=== PATIENT | female | born 1990 | race Caucasian/White ===

== ENCOUNTER 2022-11-06 20:30 | Emergency (ER) | payer MEDICAID ==
[~2022-11-06] VITALS: Ht 162.6 cm; Wt 72.6 kg
--- NOTE | 2022-11-06 20:59 | NUR ---
Patient triaged, placed in ED room 3, Patient appears in no acute distress at this time. Report given to ROLAND Piedra. ER MD Bhatti made aware.
[2022-11-06 21:00] VITALS: BP_SYST 182
--- NOTE | 2022-11-06 21:00 | NUR ---
Patient presents to ED from home with c/o syncope x2 weeks ago; elevated BP, SOB upon walking, headache, and jaw pain x1day. Patient reports pain 5/10 at this time. Patient A/Ox4, VSS with exception of BP, resp even and unlabored. Nad noted at this time. ER MD Bhatti made aware.
--- NOTE | 2022-11-06 21:15 | NUR ---
First contact. Pt placed on monitor.
--- NOTE | 2022-11-06 21:16 | NUR ---
Pt admits to having shortness of breath, high blood pressure and a headache 5/10 as the reason for coming into the ER. Pt also states she passed out 2 weeks ago. She has an appointment with a editor city to f/u regarding her syncopal episode from 2 weeks ago.
[2022-11-06 22:40] LABS: BASOPHILS # (AUTO) 0.1 K/uL (0.0-0.2); BASOPHILS % (AUTO) 0.5 % (0.0-2.0); EOSINOPHILS # (AUTO) 0.1 K/uL (0.0-0.4); EOSINOPHILS % (AUTO) 0.8 % (0.0-4.0); LYMPHOCYTES # (AUTO) 4.2 K/uL (1.0-5.5); LYMPHOCYTES % (AUTO) 42.9 % (20.5-51.5); MEAN CORPUSCULAR HEMOGLOBIN 31 pg (27-31); MEAN CORPUSCULAR HGB CONC 33 % (32-36); MEAN CORPUSCULAR VOLUME 92 fL (79.0-98.0); MONOCYTES # (AUTO) 0.6 K/uL (0.0-1.0); MONOCYTES % (AUTO) 5.7 % (1.7-9.3); NEUTROPHILS # (AUTO) 4.9 K/uL (1.8-7.7); NEUTROPHILS % (AUTO) 50.1 % (40.0-70.0); PLATELET COUNT (AUTO) 364 K/uL (130-430); RED BLOOD CELL COUNT(AUTO) 4.57 MIL/uL (4.2-6.2); RED CELL DISTRIBUTION WIDTH 14.6 % (9.0-15.0); WHITE BLOOD COUNT (AUTO) 9.9 K/uL (4.8-10.8)
[2022-11-06] MEDS ORDERED: ACETAMINOPHEN 325 MG TABLET PO ONE (23:00)
[2022-11-06] MEDS ORDERED: IBUPROFEN 600 MG TABLET PO ONE (23:00)
[2022-11-06 23:28] LABS: ALANINE AMINOTRANSFERASE 36 U/L (12-78); ALBUMIN 3.5 g/dL (3.4-4.8); ANION GAP 13 (5-15); ASPARTATE AMINOTRANSFERASE 25 U/L (10-37); CALCIUM 8.8 mg/dL (8.4-11.0); CHLORIDE 103 mmol/L (98-107); CREATININE 0.84 mg/dL (0.55-1.30); GLUCOSE 92 mg/dL (70-99); TOTAL BILIRUBIN 0.3 mg/dL (0.0-1.0); UREA NITROGEN, BLOOD 15 mg/dL (8-21)
[2022-11-06 23:31] LABS: GFR AFRICAN AMERICAN 100 mL/min (>90)
[2022-11-07] MEDS ORDERED: iohexoL 350 mgI/mL, 100 ML INFUS..BTL IV ONE (01:08)
[2022-11-07 03:14] VITALS: BP_SYST 129
--- NOTE | 2022-11-07 03:25 | NUR ---
Patient given written and verbal discharge instructions and verbalizes understanding. ER MD discussed with patient the results and treatment provided. Patient in stable condition. ID arm band removed. IV catheter removed intact and dressing applied, no active bleeding. Patient educated on pain management and to follow up with PMD. Opportunity for questions provided and answered.
== END 2022-11-07 03:25 | disposition home or self-care (01) ==
LOC: SED 20:30
DX: R06.02 Shortness of breath (principal); R07.89 Other chest pain; R51.9 Headache, unspecified; R79.0 Abnormal level of blood mineral; I10 Essential (primary) hypertension; Z79.899 Other long term (current) drug therapy
CPT/HCPCS: 99285; 71045; 80053; 83880; 85025; 85379; 84484; 36415; 93005; 81025; 71275; 76376; Q9967

== ENCOUNTER 2023-01-05 17:36 | Inpatient (IN) | payer MEDICAID ==
[~2023-01-05] VITALS: Ht 167.6 cm; Wt 75.3 kg
--- NOTE | 2023-01-05 17:36 | NUR ---
PT PLACED IN HALLWAY BED, AWAITING ER BED AVAILABILITY
--- NOTE | 2023-01-05 17:36 | NUR ---
Kenyatta ludwig in [facility] - 01/05/23 at 1926 by PRAKASH BROUGHT BACK TO HALLWAY BED AND TRIAGED. REPORT GIVEN TO MICHAEL
[2023-01-05 17:42] VITALS: BP_SYST 106
--- NOTE | 2023-01-05 17:45 | NUR ---
PT STATES LAST DRINK WAS 4 DAYS AGO, NOW WITH SHAKING, ANXIETY AND DIAPHORESIS
[2023-01-05] MEDS ORDERED: LORazepam 2 MG/ML VIAL IVP ONE ×2 (18:00→18:30)
[2023-01-05] MEDS ORDERED: FOLIC ACID 1 MG, THIAMINE HCL 100 MG, MAGNESIUM SULFATE 1 GM, MVI 10 ML in NACL 0.9% 1,... IV ONE (18:30)
[2023-01-05] MEDS ORDERED: NACL 0.9% 1,000 ML IV ONE (18:30)
[2023-01-05] MEDS ORDERED: DIPHENHYDRAMINE INJ 50 MG/ML VIAL IVP ONE (18:30)
--- NOTE | 2023-01-05 18:30 | NUR ---
DR PEREYRA AT BEDSIDE FOR EVALUATION, REMAINS IN [facility]
[2023-01-05 19:39] LABS: BASOPHILS % (AUTO) 0.1 % (0.0-2.0); HEMATOCRIT 42.3 % (36-48); HEMOGLOBIN 13.8 g/dL (12.0-16.0); LYMPHOCYTES # (AUTO) 1.4 K/uL (1.0-5.5); LYMPHOCYTES % (AUTO) 9.6 % (20.5-51.5); MEAN CORPUSCULAR HEMOGLOBIN 29 pg (27-31); MEAN CORPUSCULAR HGB CONC 33 % (32-36); MEAN CORPUSCULAR VOLUME 90 fL (79.0-98.0); MONOCYTES # (AUTO) 0.7 K/uL (0.0-1.0); MONOCYTES % (AUTO) 4.7 % (1.7-9.3); NEUTROPHILS # (AUTO) 12.2 K/uL (1.8-7.7); NEUTROPHILS % (AUTO) 85.6 % (40.0-70.0); PLATELET COUNT (AUTO) 246 K/uL (130-430); RED BLOOD CELL COUNT(AUTO) 4.71 MIL/uL (4.2-6.2); RED CELL DISTRIBUTION WIDTH 15.7 % (9.0-15.0); WHITE BLOOD COUNT (AUTO) 14.3 K/uL (4.8-10.8)
[2023-01-05 19:53] LABS: ALBUMIN 2.7 g/dL (3.4-4.8); CALCIUM 8.8 mg/dL (8.4-11.0); CREATININE 1.16 mg/dL (0.55-1.30); TOTAL BILIRUBIN 1.5 mg/dL (0.0-1.0)
[2023-01-05] MEDS ORDERED: LORazepam 2 MG/ML VIAL ONE (20:55)
[2023-01-05] MEDS ORDERED: FOLIC ACID 1 MG, MVI 10 ML in NACL 0.9% 1,000 ML IV ONE (21:00)
[2023-01-05] MEDS ORDERED: THIAMINE HCL 100 MG, MAGNESIUM SULFATE 1 GM in NS 100 ML IV ONE (21:00)
--- NOTE | 2023-01-05 22:00 | NUR ---
PT moved to bed 8.Placed on quality assurance monitor chassis, blood pressure machine and pulse oximeter. To gown for exam. Side rails up. Report given to Marian WATKINS(reg).
[2023-01-05] MEDS ORDERED: LORazepam 2 MG/ML VIAL IVP PRN (23:00)
--- NOTE | 2023-01-05 23:06 | NUR ---
Admit bed requested Patient will be admitted to care of . Admitted to TELE unit. Diagnosis ACUTE ALCOHOL WITHDRAWAL Inpatient (Yes or No) YES Observation (Yes or No) NO Orientation concerns or request close to nursing station (Yes or No) YES Covid Status N/A On vent or bipap NO Isolation requirements NO Needs a sitter NO From Home (Yes or if No enter name of facility) [facility] Requires Dialysis (Yes or No) NO Med Rec Completed (Yes of No) UNABLE TO OBTAINED PT CANNOT REMMEMBER
[2023-01-06] VITALS (7 sets, daily range): BP systolic 110–137
[2023-01-06] MEDS: NACL 0.9% 1,000 ML IV SCH ×4 (01:18→22:38)
--- NOTE | 2023-01-06 01:18 | NUR ---
ADMIT NOTE Received pt from ER to the floor with a diagnosis of Liver Cirrhosis. Admission process initiated. patient oriented to pain management, safety and call light-teach back done procedures explained FALL MEASURES IMPLEMENTED call luna process explained to patient BED ALARM is on & working / .
--- NOTE | 2023-01-06 01:19 | NUR ---
Patient will be admitted to care of DR. MERCER. Admitted to TELE unit. Will go to room 107A. Belongings list completed. Complete and up to date summary report printed. SBAR report given TO ROLAND REY at bedside with opportunity for questions.
--- NOTE | 2023-01-06 03:18 | NUR ---
Hourly Rounding fall Risk patient BED ALARM is on & working / Respirations Remain Regular also unlabored / .
[2023-01-06 05:54] LABS: ALBUMIN 2.5 g/dL (3.4-4.8); CALCIUM 7.7 mg/dL (8.4-11.0); CREATININE 1.68 mg/dL (0.55-1.30); TOTAL BILIRUBIN 1.2 mg/dL (0.0-1.0)
--- NOTE | 2023-01-06 06:47 | NUR ---
PHONED PAGED DR SYLVIE RICHARDSON , LAB @ 6.6 K
--- NOTE | 2023-01-06 06:53 | NUR ---
NEW ORDERS DR MERCER DO D/T ELEVATED K @ 6.6
[2023-01-06] MEDS ORDERED: SODIUM POLYSTYRENE SULFONATE 15 GM/60 ML UDBTL PO ONE (07:40)
[2023-01-06] MEDS ORDERED: POTASSIUM CHLORIDE 20 MEQ TAB.PRT.SR PO PRN (08:30)
[2023-01-06] MEDS ORDERED: MUPIROCIN 2% TOPICAL OINTMENT 22 GM NS PRN (08:30)
[2023-01-06] MEDS ORDERED: FOLIC ACID 1 MG, THIAMINE HCL 100 MG, MAGNESIUM SULFATE 1 GM, MVI 10 ML in NACL 0.9% 1,... IV ONE (08:30)
[2023-01-06] MEDS ORDERED: DOCUSATE SODIUM 100 MG CAPSULE PO PRN (08:30)
[2023-01-06] MEDS ORDERED: ONDANSETRON HCL 4 MG/2 ML VIAL IVP PRN (08:30)
[2023-01-06] MEDS ORDERED: ACETAMINOPHEN 325 MG TABLET PO PRN (08:30)
[2023-01-06] MEDS ORDERED: MAGNESIUM SULFATE 50 ML IV PRN (08:30)
[2023-01-06] MEDS ORDERED: LORazepam 2 MG/ML VIAL IVP PRN (08:30)
[2023-01-06] MEDS ORDERED: NALOXONE HCL 0.4 MG/ML AMP (NARCAN) IVP PRN ×2 (08:30)
--- NOTE | 2023-01-06 08:51 | NUR ---
CONSULTATION PAGED/CALLED Reason for Consultation: Renal insuff Person Who was Notified: Eliana Consulting Physician: Dr. Loyd Instrumentation Specialist Specialty: Nephrology Ordering Physician: Dr. Montez
[2023-01-06] MEDS ORDERED: chlordiazePOXIDE HCL 25 MG CAPSULE PO ONE (09:15)
[2023-01-06] MEDS ORDERED: THIAMINE HCL 100 MG, MAGNESIUM SULFATE 1 GM in NS 100 ML IV ONE (10:00)
[2023-01-06] MEDS ORDERED: FOLIC ACID 1 MG, MVI 10 ML in NACL 0.9% 1,000 ML IV ONE (10:00)
[2023-01-06] MEDS: cefTRIAXone 1 GM in D5W 50 ML IV SCH (10:13)
[2023-01-06] MEDS: chlordiazePOXIDE HCL 25 MG CAPSULE PO SCH ×2 (14:46→20:26)
[2023-01-06 15:24] LABS: COLOR,URINE YELLOW (YELLOW); GLUCOSE,URINE NEGATIVE (NEGATIVE); KETONES,URINE NEGATIVE (NEGATIVE); NITRITE, URINE POSITIVE (NEGATIVE); PH,URINE 5.5 (5.0-8.0); PROTEIN URINE 2+ (NEGATIVE)
[2023-01-06 15:29] LABS: HCG,QUAL RESULT NEGATIVE (NEGATIVE)
[2023-01-06 15:36] LABS: BLOOD, URINE TRACE (NEGATIVE); CLARITY/URINE HAZY (CLEAR)
[2023-01-06 15:37] LABS: BILIRUBIN,URINE 1+ (NEGATIVE); LEUKOCYTE ESTERASE ,URINE TRACE (NEGATIVE)
[2023-01-06 15:38] LABS: BACTERIA,URINE MODERATE /HPF (None Seen); FINE GRANULAR CASTS,URINE 0-10 /LPF (None Seen); MUCUS,URINE None Seen /LPF (None Seen); RBC,URINE NONE SEEN /HPF (0-3)
[2023-01-06 15:39] LABS: BARBITURATE, URINE NEGATIVE (NEG <=200); BENZODIAZEPINE, URINE POSITIVE (NEG <=150); COCAINE, URINE NEGATIVE (NEG <=150); METHAMPHETAMINES SCREEN,URINE POSITIVE (NEG <=500); URINE AMPHETAMINE POSITIVE (NEG <=500); URINE METHADONE NEGATIVE (NEG <=200)
[2023-01-06 15:40] LABS: CANNABINOID, URINE NEGATIVE (NEG <=50); OPIATE, URINE NEGATIVE (NEG <=100); PHENCYCLIDINE SCREEN,URINE NEGATIVE (NEG <=25); UR TRICYCLIC ANTIDEPRESSANTS NEGATIVE (NEG <=300); URINE OXYCODONE SCREEN NEGATIVE (NEG <=100); URINE PROPOXYPHENE SCREEN NEGATIVE (NEG <=300)
[2023-01-06 16:23] LABS: CALCIUM 7.5 mg/dL (8.4-11.0); CREATININE 1.4 mg/dL (0.55-1.30)
--- NOTE | 2023-01-06 17:55 | NUR ---
Ciaio Lumite Injector re: social media editor referral I met with patient at bedside to discuss her recent referral. The patient is alert and oriented and agreed to speak with me. per patient, she is residing with a friend in a single-story home. She is independent with her care needs. She does have stable housing, however she acknowledges that her family is divided among two homes. The patient was tearful in conversation when addressing her alcohol consumption. She states it has become progressively worse over the years, as she began drinking about 15 years ago. her alcohol of choice is vodka, and she states she would consume approximately 3 pints a day. The patient states she drinks independently, and that her room mate is aware she has a problem, which is part of the reason that her friend allowed her to stay with her, as she was planning to work on her sobriety. The patient states she has a "good life". She doesn't have the normal struggles and feels like she shouldn't have anything to "complain about". She doesn't consider herself depressed. She states she doesn't have mental health concerns that she is aware of per patient, "I drink to drink". When she was younger, the patient states she was diagnosed with depression. She states she has participated in individual therapy and is not opposed to seeking and participating in therapy now. I discussed resources that are available to those who are interested in addressing their sobriety. I spoke about the [place] [employer] program. i explained the program, and the patient stated she was interested and committed to working on her sobriety. When asked what is moving her sobriety, she indicated her health. The patient has been diagnosed with cirrhosis of the liver. The patient has been provided with community resources related to sobriety and mental health services. an appointment was made for the patient at the [facility]. for her substance abuse assessment on 01.10.23 at . [facility].: [phone]; [place] [id number] [facility].: [phone]
--- NOTE | 2023-01-06 19:15 | NUR ---
OPENING NOTE REPORT RECEIVED FROM DAYSHIFT NURSE. PATIENT RECEIVED LYING IN BED, RESTING, NO S/S OF ACUTE DISTRESS. BREATHING EVEN AND UNLABORED. IVF INFUSING WELL, IV SITE PATENT, NO SIGNS OF INFILTRATION OR INFECTION. CALL LIGHT WITH PATIENT. BED ALARM ON. BED IS LOCKED AND AT LOWEST POSITION. WILL CONTINUE TO MONITOR.
[2023-01-06] MEDS: ZOLPIDEM TARTRATE 5 MG TABLET PO PRN (20:26)
--- NOTE | 2023-01-06 23:00 | NUR ---
ROUNDS PATIENT IN BED, RESTING. NO SIGNS OF DISCOMFORT. CHEST RISE AND FALL EVEN BILATERALLY. ALL NEEDS MET. WILL MONITOR.
[2023-01-07] VITALS: BP_SYST 128
--- NOTE | 2023-01-07 03:00 | NUR ---
ROUNDS PATIENT IN BED, RESTING. NO CHANGE FROM PREVIOUS. ALL NEEDS MET. WILL MONITOR.
[2023-01-07] MEDS: NACL 0.9% 1,000 ML IV SCH ×4 (06:17→22:49)
[2023-01-07 06:27] LABS: BASOPHILS % (AUTO) 0.1 % (0.0-2.0); EOSINOPHILS % (AUTO) 0.2 % (0.0-4.0); HEMATOCRIT 35.9 % (36-48); HEMOGLOBIN 11.6 g/dL (12.0-16.0); MEAN CORPUSCULAR HEMOGLOBIN 29 pg (27-31); MEAN CORPUSCULAR HGB CONC 32 % (32-36); MEAN CORPUSCULAR VOLUME 89 fL (79.0-98.0); MONOCYTES # (AUTO) 1.2 K/uL (0.0-1.0); NEUTROPHILS # (AUTO) 8.5 K/uL (1.8-7.7); NEUTROPHILS % (AUTO) 72.7 % (40.0-70.0); PLATELET COUNT (AUTO) 262 K/uL (130-430); RED BLOOD CELL COUNT(AUTO) 4.05 MIL/uL (4.2-6.2); RED CELL DISTRIBUTION WIDTH 15.7 % (9.0-15.0); WHITE BLOOD COUNT (AUTO) 11.6 K/uL (4.8-10.8)
--- NOTE | 2023-01-07 06:29 | NUR ---
CLOSING NOTE PATIENT IN BED, RESTING, NO SIGNS OF DISCOMFORT. CHEST RISE AND FALL EVEN BILATERALLY. IVF INFUSING WELL, IV SITE PATENT, NO SIGNS OF INFILTRATION OR INFECTION NOTED. ALL NEEDS MET THROUGHOUT SHIFT. FALL, SAFETY PRECAUTIONS MAINTAINED THROUGHOUT SHIFT. WILL CONTINUE TO MONITOR UNTIL PATIENT CARE IS ENDORSED TO ONCOMING DAYSHIFT NURSE.
[2023-01-07 06:46] LABS: CALCIUM 7.2 mg/dL (8.4-11.0); CREATININE 1.01 mg/dL (0.55-1.30)
[2023-01-07 08:00] VITALS: BP_SYST 124
[2023-01-07] MEDS: cefTRIAXone 1 GM in D5W 50 ML IV SCH (09:44)
[2023-01-07] MEDS: chlordiazePOXIDE HCL 25 MG CAPSULE PO SCH ×3 (09:44→20:36)
[2023-01-07 12:00] VITALS: BP_SYST 124
[2023-01-07 16:00] VITALS: BP_SYST 129
--- NOTE | 2023-01-07 16:41 | NUR ---
Dietitian Recommendations * Continue Regular diet * Consider routine MVI w/ minerals * Encourage good PO intakes * RD provided cirrhosis and sobriety MNT LP, MS, RD Please refer to Nutrition Assessment for details. Addendum: 01/07/23 at [address] Amended: Links added.
[2023-01-07 20:00] VITALS: BP_SYST 146
[2023-01-07] MEDS ORDERED: ATEN50TA PO (20:35)
[2023-01-07] MEDS: ZOLPIDEM TARTRATE 5 MG TABLET PO PRN (22:58)
--- NOTE | 2023-01-07 23:00 | NUR ---
IVF, sleeping pill IVF empty and hung new bag of NS. Infusing well via RFA, no s/sx of infiltration noted. Patient reports she is having trouble sleeping and requested sleeping pill. Administered Ambien as ordered; reviewed side effects and she verbalized understanding. No further needs.
[2023-01-08 01:03] VITALS: BP_SYST 149
--- NOTE | 2023-01-08 05:36 | NUR ---
IVF, resting Hung new bag of IVF, patient resting w/eyes closed. She is moving legs/restless pattern.
[2023-01-08 06:53] LABS: BASOPHILS % (AUTO) 0.2 % (0.0-2.0); EOSINOPHILS # (AUTO) 0.1 K/uL (0.0-0.4); EOSINOPHILS % (AUTO) 0.8 % (0.0-4.0); HEMATOCRIT 35.2 % (36-48); HEMOGLOBIN 11.4 g/dL (12.0-16.0); LYMPHOCYTES # (AUTO) 2.1 K/uL (1.0-5.5); LYMPHOCYTES % (AUTO) 22.1 % (20.5-51.5); MEAN CORPUSCULAR HEMOGLOBIN 29 pg (27-31); MEAN CORPUSCULAR HGB CONC 32 % (32-36); MEAN CORPUSCULAR VOLUME 89 fL (79.0-98.0); MONOCYTES # (AUTO) 0.8 K/uL (0.0-1.0); NEUTROPHILS # (AUTO) 6.5 K/uL (1.8-7.7); NEUTROPHILS % (AUTO) 68.9 % (40.0-70.0); PLATELET COUNT (AUTO) 275 K/uL (130-430); RED BLOOD CELL COUNT(AUTO) 3.97 MIL/uL (4.2-6.2); RED CELL DISTRIBUTION WIDTH 15.8 % (9.0-15.0); WHITE BLOOD COUNT (AUTO) 9.5 K/uL (4.8-10.8)
[2023-01-08 07:20] LABS: CALCIUM 7.5 mg/dL (8.4-11.0); CREATININE 0.83 mg/dL (0.55-1.30)
--- NOTE | 2023-01-08 08:00 | NUR ---
AM NOTES PT STABLE NOTIN ACUTE DISTRESS. BP 115/104, HR 105. DENIES ANY PAIN OR ORTHER DISCOMFORT. SAFETY AND FALL PRECAUTIONS IN PLACE. WILL CONITNUE TO MONITOR
[2023-01-08 08:04] VITALS: BP_SYST 155
--- NOTE | 2023-01-08 08:30 | NUR ---
PT WALKED IN HALLWAY WITH FRIEND WITH STEADY GAIT. CALLED DR CHARLES FOR BP 155/104. WAITING FOR CALL BACK
[2023-01-08] MEDS: cefTRIAXone 1 GM in D5W 50 ML IV SCH (09:13)
[2023-01-08] MEDS: chlordiazePOXIDE HCL 25 MG CAPSULE PO SCH (09:13)
[2023-01-08] MEDS ORDERED: ATENOLOL 50 MG TABLET (TENORMIN) PO ONE (09:30)
--- NOTE | 2023-01-08 09:30 | NUR ---
CALLED DR CHARLES NOTIFIED FOR BP 155/104 AND 130/90. HR 102. PT DENIES ANY PAIN OR ORTHER DISCOMFORT.NEW ORDER RECEIVED TO ATENOLOL 50 MG POX1
[2023-01-08 09:49] VITALS: BP_SYST 130; BP_SYST 138
--- NOTE | 2023-01-08 10:15 | NUR ---
D/C Patient/LATE ENTRY Patient given medication reconciliation form and D/C instructions. Exit Care provided. Patient verbalized understanding. MD discussed with patient the results and treatment provided. Ambulatory with steady gait for discharge to home. Patient in stable condition, ID band removed. IV catheter removed, intact and dressing applied, no active bleeding. Patient educated on pain management. All belongings sent with patient.PT LEFT WITH MOTHER MACARENA
== END 2023-01-08 10:22 | disposition home or self-care (01) | DRG 426 ==
LOC: SED 17:36 → STU 22:59
PROVIDERS: ADMIT General Practice; ATTEND General Practice
DX: E87.1 Hypo-osmolality and hyponatremia (principal); N17.0 Acute kidney failure with tubular necrosis; E44.0 Moderate protein-calorie malnutrition; N12 Tubulo-interstitial nephritis, not specified as acute or chronic; K70.30 Alcoholic cirrhosis of liver without ascites; E87.5 Hyperkalemia; R74.01 Elevation of levels of liver transaminase levels; F10.139 Alcohol abuse with withdrawal, unspecified; Y90.9 Presence of alcohol in blood, level not specified; F15.10 Other stimulant abuse, uncomplicated; D72.829 Elevated white blood cell count, unspecified; Z68.26 Body mass index [BMI] 26.0-26.9, adult
CPT/HCPCS: 36415; 76376; 80048; 80053; 80307; 81000; 82550; 83037; 83735; 84703; 85025; 99285; G0378; J0696; J1200; J2060; J2405; J3411; J3475; J3490; J7030; J7060

== ENCOUNTER 2023-01-10 22:43 | Emergency (ER) | payer MEDICAID ==
[~2023-01-10] VITALS: Ht 162.6 cm; Wt 81.6 kg
[~2023-01-10 22:43] MED LIST: ATEN50TA PO
[2023-01-10 23:00] VITALS: BP_SYST 147
[2023-01-11 01:16] VITALS: BP_SYST 138
== END 2023-01-11 01:16 | disposition home or self-care (01) ==
LOC: SED 22:43
DX: R60.9 Edema, unspecified (principal); F10.20 Alcohol dependence, uncomplicated; I10 Essential (primary) hypertension; Z79.899 Other long term (current) drug therapy; Y90.6 Blood alcohol level of 120-199 mg/100 ml
CPT/HCPCS: 99281